=== PATIENT | male | born 1995 | race American Indian/Alaskan Native ===

== ENCOUNTER 2019-06-10 13:33 | Emergency (ER) | payer SELFPAY ==
[2019-06-10 14:57] VITALS: BP 117/72
--- NOTE | 2019-06-10 16:07 | Emergency Department Report ---
Chief Complaint: Upper Respiratory Infection Stated Complaint: HEACHEACHE/CONGESTED - HPI History of Present Illness: c/o very mild headache. Now resolved. Sts could not make it to work. - ROS Review of Systems: All other sx review and negative - Exam Vital Signs: Vital Signs 06/10/19 14:56 Temperature 97.9 F Pulse Rate 58 L Respiratory 16 Rate Blood Pressure 117/72 O2 Sat by Pulse 99 Oximetry Physical Exam: Neurological exam intact. Exam o/w WNL. MSE screening note: Focused history and physical exam performed. Due to findings the following was ordered: ED Disposition for MSE Clinical Impression: Cephalalgia Qualifiers: Headache type: unspecified Headache chronicity pattern: acute headache Intractability: not intractable Qualified Code(s): R51 - Headache Disposition: DC-01 TO HOME OR SELFCARE Is pt being admited?: No Does the pt Need Aspirin: No Condition: Stable Instructions: Acute Headache (ED) Forms: Work/School Release Form(ED) Time of Disposition: 16:07
== END 2019-06-10 16:05 | disposition home or self-care (01) ==
LOC: ED 13:33
DX: R51 Headache (principal)
CPT/HCPCS: 99282

== ENCOUNTER 2019-11-05 16:05 | Emergency (ER) | payer SELFPAY ==
[2019-11-05 16:12] VITALS: BP 123/68
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
== END 2019-11-05 16:36 | disposition left against medical advice (07) ==
LOC: ED 16:05
DX: M79.652 Pain in left thigh (principal); Z53.21 Procedure and treatment not carried out due to patient leaving prior to being seen by health care provider

== ENCOUNTER 2020-02-24 10:51 | Emergency (ER) | payer SELFPAY ==
[2020-02-24 11:16] VITALS: BP 120/68
--- NOTE | 2020-02-24 12:56 | Emergency Department Report ---
Chief Complaint: Urogenital-Male Stated Complaint: DISCHARGE/PAINFUL WHEN URINE Time Seen by Provider: 02/24/20 12:24 - HPI History of Present Illness: 24 yo AA M pt presents with complaints of burning urination and penile discharge x 1 month. He denies any abdominal pain, testicular/penile pain/swelling, lesions, hematuria, fever/chills/sweats, or painful/swollen joints. - Exam Vital Signs: Vital Signs 02/24/20 11:13 Temperature 98.2 F Pulse Rate 57 L Respiratory 16 Rate Blood Pressure 120/68 O2 Sat by Pulse 100 Oximetry MSE screening note: Focused history and physical exam performed. Due to findings the following was ordered: ED Medical Decision Making - Medical Decision Making 24 yo AA M pt presents with complaints of burning urination and penile discharge x 1 month. He denies any abdominal pain, testicular/penile pain/swelling, lesions, hematuria, fever/chills/sweats, or painful/swollen joints. He dneies any red flag symptoms. No abdominal ttp noted on exam. Pt is well appearing and stable for d/c home and outpt evaluation and treatment. Pt provided with health department info, clinic list, and Dr. Caicedo referral. Strict return precautions were discussed in detail with pt who verbalizes understanding. ED Disposition for MSE Clinical Impression: Exposure to STD Disposition: DC-01 TO HOME OR SELFCARE Is pt being admited?: No Condition: Stable Instructions: Sexually Transmitted Diseases (ED) Referrals: PEDRO PABLO CAICEDO MD [Staff Physician] - 3-5 Days ED Physical Exam - General Limitations: No Limitations General appearance: alert, in no apparent distress - Head Head exam: Present: atraumatic, normocephalic - Eye Eye exam: Present: normal appearance - ENT ENT exam: Present: mucous membranes moist - Respiratory Respiratory exam: Present: normal lung sounds bilaterally. Absent: respiratory distress - Cardiovascular Cardiovascular Exam: Present: regular rate, normal rhythm. Absent: systolic murmur, diastolic murmur, rubs, gallop - GI/Abdominal GI/Abdominal exam: Present: soft. Absent: distended, tenderness, guarding, rebound, rigid - Rectal Rectal exam: Present: deferred - Extremities Exam Extremities exam: Present: full ROM. Absent: tenderness, joint swelling - Neurological Exam Neurological exam: Present: alert, oriented X3, normal gait - Psychiatric Psychiatric exam: Present: normal affect, normal mood - Skin Skin exam: Present: warm, dry, intact, normal color. Absent: rash, cyanosis, diaphoretic ED Review of Systems ROS: Stated complaint: DISCHARGE/PAINFUL WHEN URINE Other details as noted in HPI Constitutional: denies: chills, diaphoresis, fever, malaise, weakness Eyes: denies: vision change ENT: denies: throat pain Respiratory: denies: shortness of breath Gastrointestinal: denies: abdominal pain, nausea, vomiting Genitourinary: dysuria, discharge. denies: urgency, frequency, hematuria, testicular pain, testicular mass Musculoskeletal: denies: joint swelling, arthralgia Skin: denies: rash, lesions, change in color Hematological/Lymphatic: denies: swollen glands
== END 2020-02-24 13:13 | disposition home or self-care (01) ==
LOC: ED 10:51
DX: Z20.2 Contact with and (suspected) exposure to infections with a predominantly sexual mode of transmission (principal)
CPT/HCPCS: 99281